=== PATIENT | male | born 1960 | race Hispanic/Latino ===

== ENCOUNTER 2019-04-02 06:21 | Emergency (ER) | payer OTHER, SELFPAY ==
[2019-04-02 07:23] LABS: Absolute Lymphocytes (CBC) 0.9 K/uL (0.7-4.9); Absolute Monocytes 0.6 K/uL (0.1-1.3); Absolute Neutrophil 12.8 K/uL (1.8-8.0); Basophils % 0.6 % (0-1.3); Hematocrit 34.8 % (39.6-49.0); MPV 8.5 fL (7.6-11.3); Monocytes % 4.1 % (3.3-12.3); RBC Red Blood Cell Count 3.89 M/uL (4.33-5.43)
[2019-04-02] MEDS ORDERED: ASPIRIN 81 MG CHEWABLE TABLET ONE (07:25)
[2019-04-02 07:37] LABS: Protime INR 0.95
[2019-04-02] MEDS ORDERED: PANTOPRAZOLE 40 MG INJ ONE (07:55)
[2019-04-02] MEDS ORDERED: NA CHLORIDE 0.9% 1,000 ML ONE ×3 (07:58→09:55)
[2019-04-02] MEDS ORDERED: ONDANSETRON 4 MG/2 ML VIAL ONE (08:02)
[2019-04-02 08:06] LABS: Arterial Blood Carboxyhemoglob 1.6 % (0-1.5); Blood O2 Saturation 90.5 % (92-98.5)
[2019-04-02] MEDS ORDERED: INSULIN -REGULAR HUMAN 50 UNIT/0.5 ML ML ONE (08:35)
[2019-04-02 08:41] LABS: ALT/SGPT 33 U/L (12-78); AST/SGOT 95 U/L (15-37); Albumin 2.6 g/dL (3.4-5.0); Alkaline Phosphatase 105 U/L (45-117); BUN Blood Urea Nitrogen 58 mg/dL (7-18); Bicarbonate 16 mmol/L (21-32); Bilirubin Direct < 0.1 mg/dL (0-0.2); Bilirubin Total 0.6 mg/dL (0.2-1.0); Creatine Phosphokinase 586 U/L (39-308); Potassium 5.3 mmol/L (3.5-5.1); Protein, Total 7.6 g/dL (6.4-8.2); Sodium Level 131 mmol/L (136-145)
[2019-04-02 08:45] LABS: Glucose Level 600 mg/dL (74-106)
[2019-04-02 08:46] LABS: CKMB Creatine Kinase MB 74.9 ng/mL (0.3-3.6)
[2019-04-02] MEDS ORDERED: INSULIN -REGULAR HUMAN 100 UNIT in NA CHLORIDE 0.9% 100 ML IV SCH (09:00)
[2019-04-02] MEDS ORDERED: HEPARIN 5000 UNIT/ML 1 ML VIAL ONE (09:07)
[2019-04-02] MEDS ORDERED: HEPARIN/D5W 25,000 UNIT/500 ML BAG IV ONE (09:08)
[2019-04-02] MEDS ORDERED: ALBUTEROL 2.5 MG/3 ML NEB SOL ONE (09:08)
[2019-04-02] MEDS ORDERED: CEFTRIAXONE/SWI 1gm 1 GM/10 ML SYR ONE (09:08)
[2019-04-02] MEDS ORDERED: LIDOCAINE VISCOUS 2% SOLN 15 ML UDC ONE (09:13)
[2019-04-02] MEDS ORDERED: METOPROLOL TAR 25 MG TAB ONE ×2 (09:13→10:07)
[2019-04-02] MEDS ORDERED: MORPHINE 4 MG/ML SYR ONE (09:13)
--- NOTE | 2019-04-02 09:23 | RAD REPORT ---
EXAM DESCRIPTION: Alfa Single View04/02/2019 8:42 am CLINICAL HISTORY: Chest pain COMPARISON: None FINDINGS: Mild bilateral interstitial lung opacities. . The heart is mildly enlarged. Pacemaker dionne ds are in place. IMPRESSION: Mild CHF
[2019-04-02 09:24] LABS: Blood Morphology Comment NOTED (NOT SEEN); Platelet Estimate INCR; Poikilocytosis 1+
--- NOTE | 2019-04-02 09:24 | ER ---
Nurse's Notes [facility] Name: Nas Grimes Age: 58 yrs Sex: Male : 1960 Arrival Date: 04/02/2019 Time: 06:29 Bed 5 Private MD: Diagnosis: Non-ST elevation (NSTEMI) myocardial infarction;Diabetes mellitus due to underlying condition with diabetic chronic kidney disease;Diabetes mellitus due to underlying condition with ketoacidosis without coma Presentation: 04/02 06:34 Presenting complaint: Patient states: Reports vomiting, diarrhea and excessive ea urination for 2 days, Pt reports he is from the [place] and is here for work. Pt reports he was in [place] and was diagnosed with CHF and "infected artery" was on IV antibiotics for 5 weeks. Pt states he has been unable to eat for the past 2 days. Transition of care: patient was not received from another setting of care. Onset of symptoms was April 02, 2019. Risk Assessment: Do you want to hurt yourself or someone else? Patient reports no desire to harm self or others. Initial Sepsis Screen: Does the patient meet any 2 criteria? No. Patient's initial sepsis screen is negative. Does the patient have a suspected source of infection? No. Patient's initial sepsis screen is negative. Care prior to arrival: None. 06:34 Method Of Arrival: Ambulatory ea 06:34 Acuity: RITA 3 ea 08:47 Acuity: RITA 2 ss Triage Assessment: 06:35 General: Appears uncomfortable, Behavior is calm, cooperative, appropriate for age. ea Pain: Complains of pain in chest and abdomen. Neuro: Level of Consciousness is awake, alert, obeys commands, Oriented to person, place, time. Cardiovascular: Patient's skin is warm and dry. Respiratory: Airway is patent Respiratory effort is even, unlabored, Respiratory pattern is regular, symmetrical. GI: Reports diarrhea, nausea, vomiting. Derm: Skin is dry, Skin is normal, Skin temperature is warm. Historical: - Allergies: 06:54 No Known Allergies; ea - Home Meds: 06:54 Lisinopril Oral [Active]; Hydralazine Oral [Active]; Levemir subcutaneous subcutaneous ea [Active]; - PMHx: 06:54 CHF; Diabetes - IDDM; ea - PSHx: 06:54 pacemaker; ea - Immunization history:: Adult Immunizations up to date. - Social history:: Smoking status: Patient/guardian denies using tobacco. - Ebola Screening: : No symptoms or risks identified at this time. Screenin:58 Abuse screen: Denies threats or abuse. Nutritional screening: No deficits noted. ea Tuberculosis screening: No symptoms or risk factors identified. Fall Risk None identified. Assessment: 07:30 General: Appears in no apparent distress. uncomfortable, slender, well developed, sv Behavior is cooperative, appropriate for age, anxious. Pain: Complains of pain in chest Pain currently is 9 out of 10 on a pain scale. Neuro: Level of Consciousness is awake, alert, obeys commands, Oriented to person, place, time, situation, Moves all extremities. Full function Speech is normal. Cardiovascular: Heart tones S1 S2 present Patient's skin is warm and dry. Pulses are 2+ in right radial artery and left radial artery. Respiratory: Airway is patent Respiratory effort is even, unlabored, Respiratory pattern is regular, symmetrical, Breath sounds are clear bilaterally. GI: Abdomen is flat, Abd is soft and non tender X 4 quads. Reports diarrhea, nausea, vomiting. GI: Reports indigestion. : Reports urinary frequency. Derm: Skin is normal. 07:51 Reassessment: Patient appears in no apparent distress at this time. No changes from sv previously documented assessment. Patient and/or family updated on plan of care and expected duration. Pain level reassessed. Patient is alert, oriented x 3, equal unlabored respirations, skin warm/dry/pink. GI: Reports nausea. 08:25 Reassessment: Patient appears in no apparent distress at this time. Patient and/or sv family updated on plan of care and expected duration. Pain level reassessed. Patient is alert, oriented x 3, equal unlabored respirations, skin warm/dry/pink. 09:05 Reassessment: Patient appears in no apparent distress at this time. Patient and/or sv family updated on plan of care and expected duration. Pain level reassessed. Patient is alert, oriented x 3, equal unlabored respirations, skin warm/dry/pink. 09:52 Reassessment: Patient appears in no apparent distress at this time. Patient and/or sv family updated on plan of care and expected duration. Pain level reassessed. Patient is alert, oriented x 3, equal unlabored respirations, skin warm/dry/pink. 10:20 Reassessment: Patient appears in no apparent distress at this time. Patient and/or sv family updated on plan of care and expected duration. Pain level reassessed. Patient is alert, oriented x 3, equal unlabored respirations, skin warm/dry/pink. 10:48 Reassessment: Report given to Troy from EMS. sv Vital Signs: 06:35 BP 175 / 92; Pulse 92; Resp 16; Temp 97.5; Pulse Ox 95% on R/A; Weight 61.69 kg; Height ea 5 ft. 9 in. (175.26 cm); Pain 9/10; 07:16 BP 162 / 93; Pulse 93; Resp 17; Pulse Ox 95% ; sv 08:00 BP 157 / 91; Pulse 88; Resp 20; Pulse Ox 98% ; sv 08:00 BP 157 / 91; Pulse 92; Resp 21; Pulse Ox 95% ; sv 09:00 BP 152 / 90; Pulse 90; Resp 20; Pulse Ox 95% ; sv 09:30 BP 151 / 78; Pulse 85; Resp 20; Pulse Ox 100% ; sv 09:40 Pain 7/10; sv 10:00 BP 150 / 84; Pulse 96; Resp 22; Temp 98.2; Pulse Ox 96% on R/A; sv 06:35 Body Mass Index 20.08 (61.69 kg, 175.26 cm) ea ED Course: 06:29 Patient arrived in ED. es 06:35 Arm band placed on right wrist. ea 06:42 EKG done. ea 06:43 Carol Iyer FNP-C is PHCP. snw 06:43 Silvio Whaley MD is Attending Physician. snw 06:51 Triage completed. ea 06:55 Inserted saline lock: 20 gauge in left antecubital area, using aseptic technique. Blood ss collected. 06:57 Patient has correct armband on for positive identification. Placed in gown. Bed in low ea position. Call light in reach. Side rails up X 1. 07:25 Radiology exam delayed due to IV insertion attempt and/or patient not having mh1 appropriate IV at this time. 07:30 First set of blood cultures drawn by me. Inserted saline lock: 22 gauge in right sv forearm, using aseptic technique. ,using aseptic technique. diffusics Blood collected. Flushed right forearm with 5 ml normal saline. 07:45 Second set of blood cultures drawn by me. sv 07:51 Rebekah Salgado, ROBERT is Primary Nurse. sv 08:40 X-ray completed. Portable x-ray completed in exam room. Patient tolerated procedure mh1 well. 08:41 Chest Single View XRAY In Process Unspecified. EDMS 09:00 Repeat lab(s) drawn. by me, sent to lab. sv 09:30 Inserted saline lock: 22 gauge in left hand, using aseptic technique. ,using aseptic sv technique. diffusics Blood collected. Flushed left hand with 5 ml normal saline. 10:54 No provider procedures requiring assistance completed. Patient transferred, IV remains sv in place. intact. Administered Medications: 07:18 Drug: Aspirin Chewable Tablet 324 mg Route: PO; ea 07:52 Follow up: Response: No adverse reaction sv 07:49 Drug: NS 0.9% 1000 ml Route: IV; Rate: 1 bolus; Site: right forearm; sv 09:00 Follow up: Response: No adverse reaction; IV Status: Completed infusion; IV Intake: sv 1000ml 07:49 Drug: Zofran 4 mg Route: IVP; Site: right forearm; sv 08:30 Follow up: Response: No adverse reaction; Marked relief of symptoms sv 07:51 Drug: ProTONIX 40 mg Route: IVP; Site: right forearm; sv 08:30 Follow up: Response: No adverse reaction sv 08:25 Drug: NS 0.9% 1000 ml Route: IV; Rate: 1 bolus; Site: right forearm; sv 09:40 Follow up: Response: No adverse reaction; IV Status: Completed infusion; IV Intake: sv 1000ml 08:26 Drug: Insulin Regular Human 6 units {Co-Signature: day (Rica Matson RN).} Route: IVP; sv Site: right forearm; 08:51 Follow up: Response: No adverse reaction; No change in condition sv 09:05 Drug: Rocephin 1 grams Route: IV; Rate: calculated rate; Site: left antecubital; sv 09:08 Follow up: Response: No adverse reaction; IV Status: Completed infusion; IV Intake: 10mlsv 09:10 Drug: Heparin (MN-Bolus No thrombolytic) - HEParin 60 units/kg {Co-Signature: day islas (Rica Matson RN).} Route: IVP; Site: left antecubital; 09:39 Follow up: Response: No adverse reaction sv 09:10 Drug: Heparin ([place] Drip) 12 units/kg/hr - (HEParin 79070 units, D5W 500 ml) sv {Co-Signature: ss (Rica Matson RN).} Route: IV; Rate: calculated rate; Site: left antecubital; 09:39 Follow up: Response: No adverse reaction; IV Status: Completed infusion; IV Intake: sv 1000ml 11:01 Follow up: Response: No adverse reaction; IV Status: Infusion continued upon transfer sv 09:11 Drug: Insulin Drip - (Insulin Regular Human 100 units, NS 0.9% 100 ml) {Co-Signature: sv ss (Rica Matson RN).} Route: IV; Rate: calculated rate; Site: right forearm; 11:01 Follow up: Response: No adverse reaction; IV Status: Infusion continued upon transfer sv 09:15 Drug: Lopressor 25 mg Route: PO; ph 09:40 Follow up: Response: No adverse reaction sv 09:15 Drug: morphine 4 mg Route: IVP; Site: right forearm; ph 09:40 Follow up: Pain 7/10 Adult; Response: No adverse reaction sv 09:20 Drug: Albuterol 2.5 mg Route: Inhalation; ph 09:20 Drug: Albuterol 2.5 mg Route: Inhalation; sv 09:20 Drug: Albuterol 2.5 mg Route: Inhalation; sv 09:52 Drug: NS 0.9% 1000 ml Route: IV; Rate: 150 ml/hr; Site: right forearm; sv 10:59 Follow up: Response: No adverse reaction; IV Status: Infusion continued upon transfer sv Point of Care Testing: Blood Glucose: 06:42 Blood Glucose: High (>450 mg/dL); ea 08:51 Blood Glucose: High (>450 mg/dL); sv 10:47 Blood Glucose: 433 mg/dL; sv 08:51 >500 sv 09:47 >478 sv Ranges: Intake: 09:00 IV: 1000ml; Total: 1000ml. sv 09:08 IV: 10ml; Total: 1010ml. sv 09:39 IV: 1000ml; Total: 2010ml. sv 09:40 IV: 1000ml; Total: 3010ml. sv Outcome: 09:22 ER care complete, transfer ordered by MD. almaraz 10:15 Transferred by ground EMS to [facility], [facility], Transfer form completed. sv X-rays sent w/ patient. Note: Report given to [facility] JON[facility] 10:15 Condition: stable 10:15 Instructed on the need for transfer. 11:02 Patient left the ED. sv Signatures: Dispatcher [employer] Rebekah Andujar RN RN Carol Iyer, MANAGER FINANCIAL-C MANAGER FINANCIAL-Csnw Rain Noel [facility] Rica Matson RN RN Josee Cain RN RN Faviola Arevalo RN RN Rica Matson RN Corrections: (The following items were deleted from the chart) 09:40 09:40 Response: No adverse reaction sv sv 10:38 10:00 BP 150 / 84; Pulse 96bpm; Resp 22bpm; Pulse Ox 96% RA; sv sv
--- NOTE | 2019-04-02 09:24 | EDPHYS ---
Physician Documentation [facility] Name: Nas Grimes Age: 58 yrs Sex: Male : 1960 Arrival Date: 04/02/2019 Time: 06:29 Bed 5 Private MD: ED Physician Silvio Whaley HPI: 04/02 06:54 This 58 yrs old Male presents to ER via Ambulatory with complaints of snw Vomiting, Diarrhea, Chest Pain. 06:54 The patient presents to the emergency department with nausea, vomiting, diarrhea. snw Onset: The symptoms/episode began/occurred suddenly, 2 day(s) ago, and became worse and became persistent. Possible causes: unknown. The symptoms are aggravated by nothing. Associated signs and symptoms: Pertinent positives: anorexia, diarrhea, nausea, vomiting. Severity of symptoms: At their worst the symptoms were moderate. The patient has experienced similar episodes in the past, chronically. The patient has not recently seen a physician. pt just finished assisted abx for infection in an "artery". Visiting here for work. No medications in 2 days. FSBS in triage >500 mg/dl. Historical: - Allergies: 06:54 No Known Allergies; ea - Home Meds: 06:54 Lisinopril Oral [Active]; Hydralazine Oral [Active]; Levemir subcutaneous subcutaneous ea [Active]; - PMHx: 06:54 CHF; Diabetes - IDDM; ea - PSHx: 06:54 pacemaker; ea - Immunization history:: Adult Immunizations up to date. - Social history:: Smoking status: Patient/guardian denies using tobacco. - Ebola Screening: : No symptoms or risks identified at this time. ROS: 06:52 Eyes: Negative for injury, pain, redness, and discharge, ENT: Negative for injury, snw pain, and discharge, Neck: Negative for injury, pain, and swelling, Cardiovascular: Negative for chest pain, palpitations, and edema, Respiratory: Negative for shortness of breath, cough, wheezing, and pleuritic chest pain. 06:52 Back: Negative for injury and pain, : Negative for injury, bleeding, discharge, and swelling, MS/Extremity: Negative for injury and deformity. 06:52 Neuro: Negative for headache, weakness, numbness, tingling, and seizure. 06:52 Constitutional: Positive for body aches, fatigue, malaise, poor PO intake. 06:52 Abdomen/GI: Positive for nausea, vomiting, and diarrhea. 06:52 Skin: Positive for poor turgor. Exam: 06:52 Head/Face: Normocephalic, atraumatic. Eyes: Pupils equal round and reactive to light, snw extra-ocular motions intact. Lids and lashes normal. Conjunctiva and sclera are non-icteric and not injected. Cornea within normal limits. Periorbital areas with no swelling, redness, or edema. ENT: Nares patent. No nasal discharge, no septal abnormalities noted. Tympanic membranes are normal and external auditory canals are clear. Oropharynx with no redness, swelling, or masses, exudates, or evidence of obstruction, uvula midline. Mucous membranes moist. Neck: Trachea midline, no thyromegaly or masses palpated, and no cervical lymphadenopathy. Supple, full range of motion without nuchal rigidity, or vertebral point tenderness. No Meningismus. Chest/axilla: Normal chest wall appearance and motion. Nontender with no deformity. No lesions are appreciated. Cardiovascular: Regular rate and rhythm with a normal S1 and S2. No gallops, murmurs, or rubs. Normal PMI, no JVD. No pulse deficits. 06:52 Back: No spinal tenderness. No costovertebral tenderness. Full range of motion. Skin: Warm, dry with normal turgor. Normal color with no rashes, no lesions, and no evidence of cellulitis. MS/ Extremity: Pulses equal, no cyanosis. Neurovascular intact. Full, normal range of motion. Neuro: Awake and alert, GCS 15, oriented to person, place, time, and situation. Cranial nerves II-XII grossly intact. Motor strength 5/5 in all extremities. Sensory grossly intact. Cerebellar exam normal. Normal gait. Psych: Awake, alert, with orientation to person, place and time. Behavior, mood, and affect are within normal limits. 06:52 Constitutional: The patient appears awake, anxious, frail, listless, unkempt. 06:52 Respiratory: the patient does not display signs of respiratory distress, Respirations: normal, Breath sounds: are clear throughout, tachypneic. 06:52 Abdomen/GI: Inspection: abdomen appears normal, Bowel sounds: normal, Palpation: abdomen is soft and non-tender. 07:07 ECG was reviewed by the Attending Physician. snw Vital Signs: 06:35 BP 175 / 92; Pulse 92; Resp 16; Temp 97.5; Pulse Ox 95% on R/A; Weight 61.69 kg; Height ea 5 ft. 9 in. (175.26 cm); Pain 9/10; 07:16 BP 162 / 93; Pulse 93; Resp 17; Pulse Ox 95% ; sv 08:00 BP 157 / 91; Pulse 88; Resp 20; Pulse Ox 98% ; sv 08:00 BP 157 / 91; Pulse 92; Resp 21; Pulse Ox 95% ; sv 09:00 BP 152 / 90; Pulse 90; Resp 20; Pulse Ox 95% ; sv 09:30 BP 151 / 78; Pulse 85; Resp 20; Pulse Ox 100% ; sv 09:40 Pain 7/10; sv 10:00 BP 150 / 84; Pulse 96; Resp 22; Temp 98.2; Pulse Ox 96% on R/A; sv 06:35 Body Mass Index 20.08 (61.69 kg, 175.26 cm) ea MDM: 06:56 Patient medically screened. snw 09:07 Data reviewed: vital signs, nurses notes. Data interpreted: Pulse oximetry: on room air snw is 98 %. Interpretation: acceptable. Counseling: I had a detailed discussion with the patient and/or guardian regarding: the historical points, exam findings, and any diagnostic results supporting the discharge/admit diagnosis, the presence of at least one elevated blood pressure reading (>120/80) during this emergency department visit, lab results, radiology results, the need to transfer to another facility, no ICU beds, will attempt transfer to [facility]. Response to treatment: There is no appreciated change of the patient's symptoms at this time. 09:20 Physician consultation: Dr Fierro was called at 09:20, was contacted at 09:20, regarding snw regarding transfer, to [facility]. 09:23 ED course: Pt states his last dose of Vanco and Cefepime were 03/26/19 in [facility] hosp. 04/02 07:02 Order name: CDIFF [facility] 04/02 07:02 Order name: Basic Metabolic Panel; Complete Time: 08:49 [facility] 04/02 07:02 Order name: Blood Culture Adult (2) [facility] 04/02 07:02 Order name: CBC with Diff; Complete Time: 09:24 snw 04/02 07:02 Order name: Ckmb; Complete Time: 08:49 snw 04/02 07:02 Order name: CPK; Complete Time: 08:49 snw 04/02 07:02 Order name: Lactate; Complete Time: 08:52 snw 04/02 07:02 Order name: LFT's; Complete Time: 08:49 snw 04/02 07:02 Order name: Procalcitonin; Complete Time: 09:32 snw 04/02 07:02 Order name: Protime (+inr); Complete Time: 08:06 snw 04/02 07:02 Order name: Ptt, Activated; Complete Time: 08:06 snw 04/02 07:02 Order name: Troponin (emerg Dept Use Only); Complete Time: 08:49 snw 04/02 07:02 Order name: Urine Microscopic Only [facility] 04/02 07:28 Order name: ABG [facility] 04/02 07:02 Order name: Chest Single View XRAY; Complete Time: 09:23 snw 04/02 07:31 Order name: Manual Differential; Complete Time: 09:24 EDMS 04/02 08:49 Order name: Glucose; Complete Time: 10:01 sv 04/02 09:01 Order name: Echo w/ Doppler pola 04/02 09:25 Order name: Chem 7 [facility] 04/02 09:52 Order name: Glucose, Ancillary Testing; Complete Time: 09:54 EDMS 04/02 09:52 Order name: Glucose, Ancillary Testing; Complete Time: 09:54 EDMS 04/02 09:52 Order name: Glucose, Ancillary Testing; Complete Time: 09:54 EDMS 04/02 09:57 Order name: Lactate sv 04/02 10:47 Order name: Glucose, Ancillary Testing; Complete Time: 10:56 EDMS 04/02 07:02 Order name: Accucheck; Complete Time: 07:06 snw 04/02 07:02 Order name: Cardiac monitoring; Complete Time: 07:06 snw 04/02 07:02 Order name: EKG - Nurse/Tech; Complete Time: 07:06 snw 04/02 07:02 Order name: IV Saline Lock - Large Bore; Complete Time: 07:07 snw 04/02 07:02 Order name: Labs collected and sent; Complete Time: 09:31 snw 04/02 07:02 Order name: O2 Per Protocol; Complete Time: 07:06 snw 04/02 07:02 Order name: O2 Sat Monitoring; Complete Time: 07:06 snw 04/02 07:02 Order name: Urine Dipstick-Ancillary (obtain specimen); Complete Time: 09:35 snw 04/02 08:55 Order name: Schmidt: binu uso; Complete Time: 09:30 pola 04/02 09:01 Order name: IV Saline Lock - Large Bore; Complete Time: 09:30 pola 04/02 09:25 Order name: FSBS; Complete Time: 09:34 snw Administered Medications: 07:18 Drug: Aspirin Chewable Tablet 324 mg Route: PO; ea 07:52 Follow up: Response: No adverse reaction sv 07:49 Drug: NS 0.9% 1000 ml Route: IV; Rate: 1 bolus; Site: right forearm; sv 09:00 Follow up: Response: No adverse reaction; IV Status: Completed infusion; IV Intake: sv 1000ml 07:49 Drug: Zofran 4 mg Route: IVP; Site: right forearm; sv 08:30 Follow up: Response: No adverse reaction; Marked relief of symptoms sv 07:51 Drug: ProTONIX 40 mg Route: IVP; Site: right forearm; sv 08:30 Follow up: Response: No adverse reaction sv 08:25 Drug: NS 0.9% 1000 ml Route: IV; Rate: 1 bolus; Site: right forearm; sv 09:40 Follow up: Response: No adverse reaction; IV Status: Completed infusion; IV Intake: sv 1000ml 08:26 Drug: Insulin Regular Human 6 units {Co-Signature: day Matson RN).} Route: IVP; sv Site: right forearm; 08:51 Follow up: Response: No adverse reaction; No change in condition sv 09:05 Drug: Rocephin 1 grams Route: IV; Rate: calculated rate; Site: left antecubital; sv 09:08 Follow up: Response: No adverse reaction; IV Status: Completed infusion; IV Intake: 10mlsv 09:10 Drug: Heparin ([place]-Bolus No thrombolytic) - HEParin 60 units/kg {Co-Signature: day Matson RN).} Route: IVP; Site: left antecubital; 09:39 Follow up: Response: No adverse reaction sv 09:10 Drug: Heparin ([place] Drip) 12 units/kg/hr - (HEParin 37757 units, D5W 500 ml) sv {Co-Signature: ss (Rica Matson RN).} Route: IV; Rate: calculated rate; Site: left antecubital; 09:39 Follow up: Response: No adverse reaction; IV Status: Completed infusion; IV Intake: sv 1000ml 11:01 Follow up: Response: No adverse reaction; IV Status: Infusion continued upon transfer sv 09:11 Drug: Insulin Drip - (Insulin Regular Human 100 units, NS 0.9% 100 ml) {Co-Signature: sv ss (Rica Matson RN).} Route: IV; Rate: calculated rate; Site: right forearm; 11:01 Follow up: Response: No adverse reaction; IV Status: Infusion continued upon transfer sv 09:15 Drug: Lopressor 25 mg Route: PO; ph 09:40 Follow up: Response: No adverse reaction sv 09:15 Drug: morphine 4 mg Route: IVP; Site: right forearm; ph 09:40 Follow up: Pain 7/10 Adult; Response: No adverse reaction sv 09:20 Drug: Albuterol 2.5 mg Route: Inhalation; ph 09:20 Drug: Albuterol 2.5 mg Route: Inhalation; sv 09:20 Drug: Albuterol 2.5 mg Route: Inhalation; sv 09:52 Drug: NS 0.9% 1000 ml Route: IV; Rate: 150 ml/hr; Site: right forearm; sv 10:59 Follow up: Response: No adverse reaction; IV Status: Infusion continued upon transfer sv Point of Care Testing: Blood Glucose: 06:42 Blood Glucose: High (>450 mg/dL); ea 08:51 Blood Glucose: High (>450 mg/dL); sv 10:47 Blood Glucose: 433 mg/dL; sv 08:51 >500 sv 09:47 >478 sv Ranges: Critical Glucose Levels:Adult <50 mg/dl or >400 mg/dl <40 mg/dl or >180 mg/dl Disposition: 04/02/19 09:22 Transfer ordered to [facility]. Diagnosis are Non-ST elevation (NSTEMI) myocardial infarction, Diabetes mellitus due to underlying condition with diabetic chronic kidney disease, Diabetes mellitus due to underlying condition with ketoacidosis without coma. - Reason for transfer: Higher level of care. - Accepting physician is Dr. Fierro. - Condition is Stable. - Problem is an acute exacerbation. - Symptoms are unchanged. Critical care time excluding procedures: 09:08 Critical care time: Bedside Care: 10 minutes, Consultation: 20 minutes. Total time: 30 snw minutes Signatures: Dispatcher [employer] Rebekah Andujar RN RN sv Anderson, Corey, MD MD cha Therrien, Shelly, SERGING MACHINE OPERATOR AUTOMATIC-C SERGING MACHINE OPERATOR AUTOMATIC-Csnw Josee Cain RN RN Faviola Sy RN RN ea Shelby Smirch RN ss Corrections: (The following items were deleted from the chart) 11:02 09:22 04/02/2019 09:22 Transfer ordered to [facility]. Diagnosis is sv Non-ST elevation (NSTEMI) myocardial infarction; Diabetes mellitus due to underlying condition with diabetic chronic kidney disease; Diabetes mellitus due to underlying condition with ketoacidosis without coma. Reason for transfer: Higher level of care. Accepting physician is Dr. Fierro. Condition is Stable. Problem is an acute exacerbation. Symptoms are unchanged. snw
[2019-04-02 11:01] LABS: Potassium 3.9 mmol/L (3.5-5.1)
[2019-04-02 11:56] LABS: Urine Amorphous Sediment 2+ /HPF (NONE SEEN); Urine Bacteria <20 /HPF (NONE SEEN); Urine RBC NONE SEEN /HPF (NONE SEEN)
[2019-04-02 11:57] LABS: Urine Culture Reflex Order NOT NEEDED
[2019-04-02 12:38] LABS: Urine Blood 2+ (NEG); Urine Glucose 2+ (NEG); Urine Protein 3+ (NEG); Urine pH 5.5 (5.0-7.0)
--- NOTE | 2019-04-03 07:54 | EKG ---
Test Date: 2019-04-02 Test Time: 06:42:21 Biblical Studies Professor: BEBETO MEASUREMENT RESULTS: Intervals: Rate: 89 VT: 164 QRSD: 120 QT: 428 QTc: 520 [place]: P: 73 VT: 164 QRS: -59 T: 124 INTERPRETIVE STATEMENTS: Atrial-sensed ventricular-paced rhythm Abnormal ECG No previous ECG available for comparison Electronically Signed On 04-03-19 07:52:45 CDT by Haresh Esquivel
== END 2019-04-02 11:02 | disposition short-term general hospital (02) ==
LOC: EDBD 06:21 → ER 06:21
DX: I21.4 Non-ST elevation (NSTEMI) myocardial infarction (principal); E11.22 Type 2 diabetes mellitus with diabetic chronic kidney disease; N18.9 Chronic kidney disease, unspecified; E87.2 Acidosis; E08.9 Diabetes mellitus due to underlying condition without complications; I50.9 Heart failure, unspecified; Z79.4 Long term (current) use of insulin
CPT/HCPCS: 36415; 71045; 80048; 80076; 81003; 81015; 82550; 82553; 82805; 82947; 82962; 83605; 84145; 84484; 85025; 85610; 85730; 87040; 93005; 96361; 96365; 96366; 96368; 96375; C9113; J0696; J1644; J2405; J7030